=== PATIENT | female | born 1945 | race Caucasian/White ===

== ENCOUNTER 2016-12-07 10:49 | Emergency (ER) | payer OTHER, MEDICARE ==
[~2016-12-07] VITALS: Ht 162.6 cm; Wt 70.0 kg
[~2016-12-07 10:49] MED LIST: ALEVE220 MG PO; ANTIVERT25 MG PO; ASPIR 8181 M1 PO; CENTRUM SILVER1 EACH PO; CIPROFLOXACIN H10 ML LEFT EYE; CIPROFLOXACIN500 M1 PO; GLUCOPHAGE1000 MG PO; LISINOPRIL20 MG PO; NORVASC2.5 MG PO; PRAVASTATIN SOD40 MG PO; PRILOSEC20 MG PO; TOPROL XL100 MG PO; [UNRECOGNIZED DRUG - REMARK]
[2016-12-07] MEDS ORDERED: ULTRAM50 MG PO (11:57)
[2016-12-07 12:23] VITALS: BP 130/61
== END 2016-12-07 12:23 | disposition home or self-care (01) ==
LOC: EME 10:49
DX: S80.01XA Contusion of right knee, initial encounter (principal); X50.1XXA Overexertion from prolonged static or awkward postures, initial encounter; Y93.E2 Activity, laundry; Y92.009 Unspecified place in unspecified non-institutional (private) residence as the place of occurrence of the external cause; E11.9 Type 2 diabetes mellitus without complications; I10 Essential (primary) hypertension
CPT/HCPCS: 73564; 99281; 99284

== ENCOUNTER 2017-10-16 23:02 | Emergency (ER) | payer OTHER, MEDICARE ==
[~2017-10-16] VITALS: Ht 165.1 cm; Wt 71.7 kg
[~2017-10-16 23:02] MED LIST changes: +ULTRAM50 MG PO
[2017-10-16 23:18] VITALS: BP 122/71
[2017-10-17] MEDS ORDERED: NORCO 5/3251 TABLET PO (00:48)
[2017-10-17] MEDS ORDERED: MOTRIN600 MG PO (00:49)
[2017-10-17] MEDS ORDERED: ERYTHROMYC1 APPLICAT BOTH EYES (01:11)
== END 2017-10-17 01:13 | disposition home or self-care (01) ==
LOC: EME 23:02
DX: H16.133 Photokeratitis, bilateral (principal); W89.8XXA Exposure to other man-made visible and ultraviolet light, initial encounter
CPT/HCPCS: 99281; 99284